=== PATIENT | male | born 1960 | race Caucasian/White ===

== ENCOUNTER 2018-08-30 20:17 | Emergency (ER) | payer OTHER ==
[~2018-08-30 20:17] MED LIST: EPINEPHRINE INJ 1 MG/10 ML DISP.SYRIN ONE; SODIUM BICARBONATE 8.4% INJ 50 MEQ/50 ML DISP.SYRIN ONE
--- NOTE | 2018-08-31 00:10 | ER Document Report ---
ED General - General Chief Complaint: Cardiac Arrest Stated Complaint: CARDIAC ARREST Time Seen by Provider: 08/30/18 20:30 - HPI Notes: Patient was seen on arrival. History pieced together from EMS and patient's , who came later. In short this is a 57-year-old male brought in after suffering cardiac arrest. Patient's states that yesterday he was complaining of a headache. He stated he felt dizzy. He laid down, stated he felt better. Today he went about his normal business. They were watching a movie at home. He "slumped over" he then sat up afterwards, spoke garbled and confusing words. He was able to coherently say "I am fine" but had a profound facial droop per the . At that point he collapsed again. He was found to be in asystole by paramedics. They did regain pulses after 2 minutes of CPR, but then the patient did arrest again. He was intubated in the field, received 4 mg of epinephrine, 1 mg of atropine. - Related Data Allergies/Adverse Reactions: No Known Allergies Allergy (Unverified 08/30/18 22:29) Past Medical History - General Information source: Relative, Emergency Med Personnel - Social History Smoking Status: Current Every Day Smoker Family History: Other - Unable to obtain - Past Medical History Cardiac Medical History: Reports: Hx Hypercholesterolemia Review of Systems - Review of Systems -: Yes ROS unobtainable due to patient's medical condition Physical Exam - Vital signs Vitals: Temp 99 F 08/30/18 20:17 - Notes Notes: Patient brought into the emergency department with CPR in progress. Head is normocephalic and appears atraumatic. Pupils are unequal, right greater than left, nonreactive. ET tube in place. CPR in progress, coarse breath sounds with bagging. Abdomen is soft. GCS is 3. Course - Re-evaluation Re-evalutation: 08/31/18 00:38 Was present in the room upon patient's arrival. CPR was in progress. Patient was placed on the OR bed in our monitor. He remained in asystole. The patient received multiple rounds of epinephrine, as well as bicarb. His glucose was normal. Given the history obtained by and EMS, I do have a strong suspicion for hemorrhagic stroke. Patient had no return of his circulation, no spontaneous movement, no respiratory effort. Lack of any cardiac activity was confirmed with the ultrasound at bedside. Time of was 2023. Family was notified. - Vital Signs Vital signs: Temp Pulse Resp BP Pulse Ox 99 F 08/30/18 20:17 Discharge - Discharge Clinical Impression: Cardiac arrest Disposition:
== END 2018-08-30 23:15 | disposition expired ==
LOC: ER 20:17
DX: I46.9 Cardiac arrest, cause unspecified (principal); F17.200 Nicotine dependence, unspecified, uncomplicated
CPT/HCPCS: 99285; 92950; 82962; J0171; J3490